=== PATIENT | male | born 1990 | race Caucasian/White ===

== ENCOUNTER 2018-01-20 17:05 | Emergency (ER) | payer SELFPAY ==
[2018-01-20 17:26] VITALS: TEMP 98.4
--- NOTE | 2018-01-20 17:43 | ED.PDOC ---
History of Present Illness - General Chief Complaint: Neuro Symptoms/Deficits Stated Complaint: dizziness Time Seen by Provider: 01/20/18 17:40 Source: patient, family Exam Limitations: no limitations Additional Information: 27 YEAR OLD COMPLAINTS OF DIZZINESS PAST 2 DAYS WORSE TODAY WORSE WITH MOVEMENTS NO ASSOCIATED HEADACHE NUMBNESS NO WEAKNESS OR NUMBNESS OF THE EXTREMITY HE HAS BEEN COMPLAINING OF NECK PAIN AND HE ATTRIBUTES TO CHANGE IN BEDDING HE HAS BEEN TAKING IBUPROFEN AND TYLENOL ON A DAILY BASIS HE REPORTS NO HEADACHE NO HISTORY OF MIGRAINE - History of Present Illness Timing/Duration: 24 hours Severity: moderate Improving Factors: rest Worsening Factors: movement Associated Symptoms: denies symptoms Allergies/Adverse Reactions: Allergies NO KNOWN ALLERGY Allergy (Unverified 11/02/12 19:19) Home Medications: Ambulatory Orders Meclizine HCl [Antivert] 25 mg PO TID #30 tab 01/20/18 Review of Systems - Review of Systems Constitutional: States: no symptoms reported EENTM: States: no symptoms reported Respiratory: States: no symptoms reported Cardiology: States: no symptoms reported Gastrointestinal/Abdominal: States: no symptoms reported Genitourinary: States: no symptoms reported Musculoskeletal: States: no symptoms reported Skin: States: no symptoms reported Neurological: States: see HPI Endocrine: States: no symptoms reported Past Medical History (General) - Patient Medical History Hx Seizures: No Hx Stroke: No Hx Dementia: No Hx Asthma: No Hx of COPD: No Hx Cardiac Disorders: No Hx Congestive Heart Failure: No Hx Pacemaker: No Hx Hypertension: No Hx Thyroid Disease: No Hx Diabetes: No Hx Gastroesophageal Reflux: No Hx Renal Disease: No Hx of HIV: No Hx MRSA: No Surgical History: no surgical history - Vaccination History Hx Influenza Vaccination: No Hx Pneumococcal Vaccination: No - Social History Hx Tobacco Use: Yes - Triage Comment ED Triage Comment: Patient states that he started feeling dizzy last night after taking a hot shower. states he has had 3 episodes like this in the past. But does suffer from anxiety but does not take medication for the anxiety. Family Medical History - Family History Mother Family History: No Known Living Status: Still Living Physical Exam - Physical Exam General Appearance: Alert, Comfortable Eye Exam: bilateral normal Ears, Nose, Throat: hearing grossly normal, normal ENT inspection, normal pharynx Neck: non-tender, full range of motion, supple Respiratory: chest non-tender, lungs clear, normal breath sounds, no respiratory distress, no accessory muscle use Cardiovascular/Chest: normal peripheral pulses, regular rate, rhythm, no edema, no gallop, no JVD, no murmur Peripheral Pulses: radial,right: 2+, radial,left: 2+, femoral,right: 2+, femoral ,left: 2+, popliteal,right: 2+, popliteal,left: 2+ Gastrointestinal/Abdominal: normal bowel sounds, non tender, soft, no organomegaly, no pulsatile mass Extremity: normal range of motion, non-tender, normal inspection 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 Copy, Patient Portal Self Enrollment Diet: resume usual diet Home Medications: Ambulatory Orders Meclizine HCl [Antivert] 25 mg PO TID #30 tab 01/20/18 Comments: IF NOT IMPROVED FOLLOW UP HERE OR YOUR PCP DO NOT DRIVE FOR 3 DAYS
[2018-01-20] MEDS ORDERED: DEXAMETHASONE INJ 10 MG/ML VIAL IM ONE (17:45)
[2018-01-20 18:11] VITALS: BP 132/75; O2SAT 97
== END 2018-01-20 18:10 | disposition home or self-care (01) ==
LOC: ER 17:05
DX: H81.10 Benign paroxysmal vertigo, unspecified ear (principal); Z87.891 Personal history of nicotine dependence

== ENCOUNTER 2020-08-16 19:56 | Emergency (ER) | payer SELFPAY ==
[2020-08-16 20:15] VITALS: TEMP 97.5
[2020-08-16 21:05] VITALS: O2SAT 99
[2020-08-16] MEDS ORDERED: predniSONE 20 MG TAB PO ONE (21:41)
--- NOTE | 2020-08-16 21:59 | ED.PDOC ---
History of Present Illness - General Chief Complaint: Neuro Symptoms/Deficits Stated Complaint: Arm numbness Time Seen by Provider: 08/16/20 20:02 Source: patient Exam Limitations: no limitations - History of Present Illness Initial Comments: The patient is a 29-year-old male presented emergency room secondary to mild tingling in his hands over the last 14 hours, since he woke up this morning. No other significant new symptoms today. He has had some increased fatigue over the last 2 weeks. No nausea vomiting or diarrhea. No chest pain or shortness of breath. No palpitations. No trauma. There has been some questionable history of cervical radiculopathy in the past. No history of any vitamin deficiencies. He denies drug use. Vital signs are stable. No real neck pain. Strength, sensation and dexterity are preserved. No obvious loss of thermal sense or proprioception Timing/Duration: other - 14 hours Severity: mild Improving Factors: nothing Worsening Factors: nothing Associated Symptoms: denies symptoms Allergies/Adverse Reactions: Allergies NO KNOWN ALLERGY Allergy (Unverified 11/02/12 19:19) Home Medications: Ambulatory Orders Meclizine HCl [Antivert] 25 mg PO TID #30 tab 01/20/18 Review of Systems - Review of Systems Constitutional: States: no symptoms reported EENTM: States: no symptoms reported Respiratory: States: no symptoms reported Cardiology: States: no symptoms reported Gastrointestinal/Abdominal: States: no symptoms reported Genitourinary: States: no symptoms reported Musculoskeletal: States: no symptoms reported Skin: States: no symptoms reported Neurological: States: see HPI Endocrine: States: no symptoms reported All other Systems: No Change from Baseline Past Medical History (General) - Patient Medical History Hx Seizures: No Hx Stroke: No Hx Dementia: No Hx Asthma: No Hx of COPD: No Hx Cardiac Disorders: No Hx Congestive Heart Failure: No Hx Pacemaker: No Hx Hypertension: No Hx Thyroid Disease: No Hx Diabetes: No Hx Gastroesophageal Reflux: Yes Hx Renal Disease: No Hx Cancer: No Hx of HIV: No Hx Hepatitis C: No Hx MRSA: No Surgical History: no surgical history - Vaccination History Hx Tetanus, Diphtheria Vaccination: No Hx Influenza Vaccination: No Hx Pneumococcal Vaccination: No - Social History Hx Tobacco Use: Yes - Pack a day Hx Chewing Tobacco Use: No Hx Alcohol Use: No Hx Substance Use: No Hx Substance Use Treatment: No Hx Depression: Yes Feels Threatened In Home Enviroment: No Feels Threatened In a Relationship: No Hx Physical Abuse: No Hx Emotional Abuse: No Hx Suspected Abuse: No - Triage Comment ED Triage Comment: The patient walked into the er and was plaed into ER bed 2. He was alert and oriented times 4 and complained of numbness and tingling to both arms and fatigue. He denied any trauma and stated that the numbness started after he got up today and started to move around. He had no noted neuro deficets noted duing assement and denied headache, chest pain and shortnes of breath. He had no arm drift noted and the strength in both arms were noted as strong and equal on both sides. He had no other noted complaints during assessment. Family Medical History - Family History Mother Family History: No Known Living Status: Still Living Physical Exam - Physical Exam General Appearance: Alert, Comfortable, No apparent distress Eye Exam: bilateral normal Ears, Nose, Throat: hearing grossly normal, normal pharynx Neck: full range of motion, supple Respiratory: lungs clear, normal breath sounds, no respiratory distress, no accessory muscle use Cardiovascular/Chest: normal peripheral pulses, regular rate, rhythm, no edema Peripheral Pulses: radial,right: 2+, radial,left: 2+ Gastrointestinal/Abdominal: non tender, soft Rectal Exam: deferred Back Exam: no CVA tenderness, no vertebral tenderness Extremity: normal range of motion, non-tender, normal inspection, no pedal edema, normal capillary refill 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 This is most likely due to a mild cervical radiculopathy. The patient is given 1 dose of oral prednisone here to reduce any localized inflammation. He should consider changing the way he sleeps as this may be contributing to symptomatology. EKG is reassuring laboratory work is reassuring no other significant pathology has been found at this point. Follow-up with primary care doctor in 1 to 2 weeks otherwise. ciera cerda [phone] - Results/Orders Results/Orders: 08/16/20 20:51 HEMOGLOBIN A1C Stat 08/16/20 21:00 EKG STAT Laboratory Results - last 24 hr 08/16/20 08/16/20 08/16/20 21:04 21:04 21:04 WBC 7.4 RBC 5.42 Hgb 15.1 Hct 44.6 MCV 82.3 MCH 27.8 MCHC 33.8 RDW 13.2 Plt Count 203 MPV 8.3 Absolute Neuts (auto) 5.40 Absolute Lymphs (auto) 1.20 Absolute Monos (auto) 0.50 Absolute Eos (auto) 0.10 Absolute Basos (auto) 0.10 Neutrophils % 72.9 Lymphocytes % 16.7 L Monocytes % 7.4 Eosinophils % 1.8 Basophils % 1.2 Sodium 137 Potassium 3.8 Chloride 102 Carbon Dioxide 27 Anion Gap 11.8 L BUN 11 Creatinine 0.83 BUN/Creatinine Ratio 13.3 Random Glucose 88 Hemoglobin A1c Serum Osmolality 272.6 L Calcium 9.2 Magnesium 2.1 Total Bilirubin 0.7 AST 18 ALT 21 Alkaline Phosphatase 42 Creatine Kinase 110 CK-MB (CK-2) 1.1 CK-MB (CK-2) % Not Reportable Troponin I < 0.02 Serum Total Protein 7.3 Albumin 4.6 Globulin 2.7 Albumin/Globulin Ratio 1.7 TSH 0.69 Urine Color Urine Appearance Urine pH Ur Specific [place] Urine Protein Urine Glucose (UA) Urine Ketones Urine Blood Urine Nitrite Urine Bilirubin Urine Urobilinogen Ur Leukocyte Esterase Urine RBC Urine WBC Ur Epithelial Cells Urine Bacteria 08/16/20 08/16/20 21:04 21:11 WBC RBC Hgb Hct MCV MCH MCHC RDW Plt Count MPV Absolute Neuts (auto) Absolute Lymphs (auto) Absolute Monos (auto) Absolute Eos (auto) Absolute Basos (auto) Neutrophils % Lymphocytes % Monocytes % Eosinophils % Basophils % Sodium Potassium Chloride Carbon Dioxide Anion Gap BUN Creatinine BUN/Creatinine Ratio Random Glucose Hemoglobin A1c 5.4 Serum Osmolality Calcium Magnesium Total Bilirubin AST ALT Alkaline Phosphatase Creatine Kinase CK-MB (CK-2) CK-MB (CK-2) % Troponin I Serum Total Protein Albumin Globulin Albumin/Globulin Ratio TSH Urine Color Yellow Urine Appearance Clear Urine pH 7.0 Ur Specific [place] 1.020 Urine Protein Negative Urine Glucose (UA) Negative Urine Ketones Negative Urine Blood Negative Urine Nitrite Negative Urine Bilirubin Negative Urine Urobilinogen 0.2 Ur Leukocyte Esterase Negative Urine RBC 0-1 Urine WBC 0 Ur Epithelial Cells 0 Urine Bacteria 0 Rapid coronavirus test is negative. EKG shows normal sinus rhythm with mild sinus arrhythmia. Normal axis. Mild early right bundle branch block. Normal QT interval. No ST segment or T wave changes indicative of acute ischemia. - EKG/XRAY/CT CT Ordered: No CT Interpretation Call Back: No Departure - Departure Clinical Impression: Cervical radiculopathy Disposition: Discharge to Home or Self Care Condition: Fair Departure Forms: ED Discharge - Pt. Copy, Patient Portal Self Enrollment Instructions: Radiculopathy (DC) Diet: regular diet Activity: increase activity as tolerated Referrals: Hetal Roca NP [Primary Care Provider] - 1-2 Weeks Home Medications: Ambulatory Orders Meclizine HCl [Antivert] 25 mg PO TID #30 tab 01/20/18 Additional Instructions: The patient is a 29-year-old male presented emergency room secondary to tingling symptoms in his hands this morning. This is most likely due to a mild cervical radiculopathy. The patient is given 1 dose of oral prednisone here to reduce any localized inflammation. He should consider changing the way he sleeps as this may be contributing to symptomatology. EKG is reassuring laboratory work is reassuring no other significant pathology has been found at this point. Follow-up with primary care doctor in 1 to 2 weeks otherwise.
[2020-08-16 22:24] VITALS: BP 133/82
== END 2020-08-16 22:13 | disposition home or self-care (01) ==
LOC: ER 19:56
DX: M54.12 Radiculopathy, cervical region (principal); I45.10 Unspecified right bundle-branch block; I49.8 Other specified cardiac arrhythmias; K21.9 Gastro-esophageal reflux disease without esophagitis; F17.210 Nicotine dependence, cigarettes, uncomplicated; Z20.822 Contact with and (suspected) exposure to COVID-19
CPT/HCPCS: 36415; 80053; 81001; 82550; 82553; 83036; 83735; 84443; 84484; 85025; 87635; 93005; 99283; J7512